=== PATIENT | male | born 1955 | race Caucasian/White ===

== ENCOUNTER 2021-09-13 08:17 | Day surgery (SDC) | payer OTHER ==
[2021-09-10 13:47] LABS: COVID AG,FIA SOURCE NASOPHARYNGEAL
[~2021-09-13] VITALS: Ht 177.8 cm; Wt 95.5 kg
[~2021-09-13 08:17] MED LIST: SODIUM CHLORIDE 0.9% 1,000 ML IV ONE; SODIUM CHLORIDE 0.9% 1,000 ML ONE
[2021-09-13] MEDS ORDERED: EPINEPHrine 1:1,000 [1 MG/ML] AMP ET ONE (08:18)
[2021-09-13] MEDS ORDERED: BENZOCAINE 20% 50 MCG/SPRAY 57 GM TP ONE (08:18)
[2021-09-13] MEDS ORDERED: LIDOCAINE 4% 50 ML SOLUTION TP ONE (08:18)
[2021-09-13] MEDS ORDERED: LIDOCAINE 2% 30 ML JELLY TP ONE (08:18)
[2021-09-13] MEDS ORDERED: GABA-1181 PO (08:35)
[2021-09-13] MEDS ORDERED: FLUT44HFA IH (08:35)
[2021-09-13] MEDS ORDERED: MONT-35 PO (08:35)
[2021-09-13] MEDS ORDERED: ALBU8.5H8 IH (08:35)
[2021-09-13] MEDS ORDERED: FLUT16H NASAL (08:35)
[2021-09-13] MEDS ORDERED: DULO30CA89 PO (08:35)
[2021-09-13] MEDS ORDERED: DOXY-354 PO (08:35)
[2021-09-13] MEDS ORDERED: FentaNYL CITRATE PF 100 MCG/2 ML VIAL ONE (09:01)
[2021-09-13] MEDS ORDERED: MIDAZOLAM HCL 5 MG/ML VIAL ONE (09:02)
[2021-09-13] MEDS ORDERED: MethylPREDNISolone SOD SUCC 125 MG/2 ML VIAL IVP ONE (10:15)
[2021-09-13] MEDS ORDERED: MethylPREDNISolone SOD SUCC 125 MG/2 ML VIAL ONE (10:22)
[2021-09-13] MEDS ORDERED: OXYGEN THERAPY IH SCH (20:00)
== END 2021-09-13 11:50 | disposition home or self-care (01) ==
LOC: SURGERY 08:17
PROVIDERS: ATTEND Internal Medicine Critical Care Medicine
DX: J38.4 Edema of larynx (principal); B37.0 Candidal stomatitis; Z90.49 Acquired absence of other specified parts of digestive tract; Z98.890 Other specified postprocedural states; Z79.899 Other long term (current) drug therapy
CPT/HCPCS: 31623; 31624; 71045; 87015; 87070; 87101; 87205; 87206; 87220; 87426; 88108; 88184; 88185; 88312; C9803; J0171; J2250; J2930; J3010; J7030; Z7610